=== PATIENT | female | born 1965 | race Caucasian/White ===

== ENCOUNTER 2024-01-11 12:52 | Emergency (ER) | payer BC ==
[~2024-01-11] VITALS: Ht 160 cm; Wt 50.9 kg
[2024-01-11 12:53] VITALS: TEMP 98.1
[2024-01-11 15:40] LABS: EOSINOPHILS # (AUTO) 0.3 X10'3 (0-0.9); LYMPHOCYTES # (AUTO) 1.9 X10'3 (1.1-4.8); NEUTROPHILS % (AUTO) 53.7 % (42-75); RED CELL DISTRIBUTION WIDTH 15.1 % (11.5-14.5); WHITE BLOOD COUNT 6.4 X10'3 (4.5-11.0)
[2024-01-11 15:41] LABS: BASOPHILS % (AUTO) 0.8 % (0-1); LYMPHOCYTES % (AUTO) 29.8 % (21-51); MEAN CORPUSCULAR HEMOGLOBIN 37.3 PG (27.0-31.0); MEAN CORPUSCULAR HGB CONC 34.2 g/dL (33.0-36.5); MEAN CORPUSCULAR VOLUME 109.1 FL (78-98); MEAN PLATELET VOLUME 8.3 FL (7.4-10.4); MONOCYTES # (AUTO) 0.8 X10'3 (0-0.9); MONOCYTES % (AUTO) 11.7 % (2-12); NEUTROPHILS # (AUTO) 3.5 X10'3 (1.8-7.7); PLATELET COUNT 251 X10'3 (140-440); RED BLOOD COUNT 5.74 X10'6 (4.20-5.60)
[2024-01-11 15:44] LABS: HEMATOCRIT 62.7 % (35.0-45.0); HEMOGLOBIN 21.4 g/dl (12.0-16.0)
[2024-01-11 15:53] LABS: ALANINE AMINOTRANSFERASE 18 U/L (12-78); ALBUMIN 3.6 G/DL (3.4-5.0); ALBUMIN/GLOBULIN RATIO 1.1 (1.1-1.5); ALKALINE PHOSPHATASE 72 IU/L (46-116); ANION GAP 8 (8-16); ASPARTATE AMINO TRANSFERASE 16 U/L (10-37); BILIRUBIN,TOTAL 0.8 MG/DL (0.1-1.0); BLOOD UREA NITROGEN 11 MG/DL (7-18); BUN/CREATININE RATIO 13.8 (10.0-20.0); CALCIUM 9.2 MG/DL (8.5-10.1); CHLORIDE 105 MMOL/L (99-107); GLUCOSE 80 MG/DL (70-104); SODIUM 141 MMOL/L (135-145); TOTAL CARBON DIOXIDE 28.5 MMOL/L (24-32); eCRCL 62 ML/MIN; eGFR 74 ML/MIN
[2024-01-11] MEDS: normal saline 1000ML IV soln IVB ONE (16:01)
[2024-01-11 16:35] VITALS: BP 154/108; PULSE 73; RESP 14; O2SAT 95
== END 2024-01-11 18:04 | disposition home or self-care (01) ==
LOC: ER 12:52
DX: D75.1 Secondary polycythemia (principal); E86.0 Dehydration; F17.200 Nicotine dependence, unspecified, uncomplicated
CPT/HCPCS: 36415; 80053; 81479; 82668; 83891; 83909; 85025; 96360; 99283; J7030